=== PATIENT | female | born 1940 | race African-American/Black ===

== ENCOUNTER 2018-07-11 20:09 | Inpatient (IN) ==
[2018-07-12] MEDS ORDERED: Sod Chloride 0.9% Inj 1,000 ML IV.SIG ONE (00:31)
[2018-07-12 01:28] LABS: Baso % (Auto) 0.3 % (0.0-2.0); Hematocrit 44.9 % (35.0-46.0); Hemoglobin 15.4 gm/dL (11.6-15.3); Lymph # (Auto) 0.6 th/mm3 (1.0-4.8); Lymph % (Auto) 8.2 % (9.0-44.0); Mean Corpuscular HGB Conc 34.2 % (32.0-36.0); Mean Corpuscular Hemoglobin 29.9 pg (27.0-34.0); Mean Corpuscular Volume 87.4 fL (80.0-100.0); Mean Platelet Volume 7.8 fL (7.0-11.0); Mono # (Auto) 0.5 th/mm3 (0.0-0.9); Mono % (Auto) 6.8 % (0.0-8.0); Neut # (Auto) 6.1 th/mm3 (1.8-7.7); Neut % (Auto) 84.7 % (16.0-70.0); Platelet Count 342 th/mm3 (150-450); Red Blood Count 5.14 mil/mm3 (4.00-5.30); Red Cell Distribution Width 13.8 % (11.6-17.2); White Blood Count 7.2 th/mm3 (4.0-11.0)
[2018-07-12 01:47] LABS: Alkaline Phosphatase 81 U/L (45-117); Blood Urea Nitrogen 14 mg/dL (7-18); Total Protein 8.6 g/dL (6.4-8.2)
[2018-07-12 01:52] LABS: Alanine Aminotransferase 26 U/L (10-53); Anion Gap 8 meq/L (5-15); Aspartate Aminotransferase 24 U/L (15-37); Calcium 9.8 mg/dL (8.5-10.1); Carbon Dioxide 31.3 meq/L (21.0-32.0); Chloride 101 meq/L (98-107); Glomerular Filtration Rate 67 mL/min (>89); Glucose,Random 115 mg/dL (74-106); Potassium 3.6 meq/L (3.5-5.1); Sodium 140 meq/L (136-145)
[2018-07-12] MEDS ORDERED: Metoprolol Inj 5 MG/5 ML Vial IV.PUSH ONE (01:52)
[2018-07-12] MEDS ORDERED: Metoprolol Tartrate 25 MG Tablet PO ONE (01:53)
[2018-07-12] MEDS ORDERED: dilTIAZem Inj 125 MG in Sodium Chlor 0.9% Inj 100 ML IV.CONT PRN (02:28)
[2018-07-12] MEDS ORDERED: Acetaminophen 325 MG Tablet PO PRN (02:38)
[2018-07-12] MEDS ORDERED: Bisacodyl 10 MG Supp RECTAL PRN (02:38)
[2018-07-12] MEDS ORDERED: Morphine Inj 4 MG/ML Vial IV.PUSH PRN (02:39)
[2018-07-12] MEDS: Sod Chloride 0.9% Inj 1,000 ML IV.CONT SCH ×2 (02:48→14:05)
[2018-07-12 03:05] LABS: Troponin I 0.04 ng/mL (0.02-0.05)
[2018-07-12] MEDS ORDERED: Sod Chloride 0.9% Inj 1,000 ML IV.SIG SCH (03:30)
--- NOTE | 2018-07-12 03:52 | P.HPIM ---
History of Present Illness Primary Care Physician: UNKNOWN History of Present Illness: This is a 77-year-old female with a PMH of HTN who presented to the ER with complaints of nausea and vomiting. Pt states she is here visiting w/ sister, had been at a seminar all day and had not eaten anything except for a sausage sandwich, later developed multiple episodes of nausea/vomiting in addition to epigastric pain. No fever, chills or diarrhea. While in ER, pt noted to have episode of tachycardia w/ HR 160's, s/p Cardizem w/ some improvement, noted to be likely A-flutter, currently on Cardizem gtt. Pt reports previous h/o "high hear rate" in 2006, but was told "my heart was fine". BP 186/98, HR currently 80s. CBC unremarkable except for hemoglobin 15.4. GFR 67. Troponin 0.04. - Diagnosis (1) Dysrhythmia (2) Intractable nausea and vomiting (3) Dehydration Inpatient Certification: I certify that the inpatient services were ordered in accordance with Medicare regulations governing the order. This includes certification that hospital inpatient services are reasonable and necessary and in the case of services not specified as inpatient-only under 42 CFR 419.22(n), that they are appropriately provided as inpatient services in accordance to with the 2-midnight benchmark under 43 CFR 412.3(e) Estimated Total Length of Stay (Days): 2 Plans for Post Hospital Care: Not yet determined Review of Systems PAST FAMILY HISTORY: Reviewed. No h/o DM or CAD All other systems reviewed negative except as stated in HPI [facility] - History History Provided By: Patient - Medical History Medical History: Medical History (Last Updated 07/12/18 @ 03:23 by Miryam Mata) Constipation Hypertension - Tobacco History Second Hand Smoke Exposure: No Tobacco Use In Past 30 Days: No Smoking Status: Never smoker - Alcohol History How Often Do You Have a Drink Containing Alcohol: Never - Substance Use History Substance History: No History of Abuse - Immunization History Tetanus Immunization: >5 Years Medications and Allergies Active Medications: Active Medications Acetaminophen (Tylenol) 650 mg PO Q4H PRN PRN Reason: Temp > 100.4 Al Hydroxide/Mg Hydroxide (Milk Of Magnesia Liq) 30 ml PO Q12H PRN PRN Reason: Mild Constipation Bisacodyl (Dulcolax Supp) 10 mg RECTAL DAILY PRN PRN Reason: SEVERE CONSITIPATION Diltiazem HCl 125 mg/ Sodium (Chloride) 125 mls @ 5 mls/hr IV.CONT TITRATE PRN ; Protocol PRN Reason: Per Protocol Last Admin: 07/12/18 03:00 Dose: 5 mg/hr, 5 mls/hr Sodium Chloride (Ns Inj) 1,000 mls @ 100 mls/hr IV.CONT .Q10H DANNIELLE Last Admin: 07/12/18 02:48 Dose: 100 mls/hr Sodium Chloride (Ns Inj) 1,000 mls @ 1,000 mls/hr IV.SIG BOLUS [facility] Stop: 07/12/18 04:29 Lactulose (Lactulose Liq) 30 ml PO DAILY PRN PRN Reason: SEVERE CONSITIPATION Morphine Sulfate (Morphine Inj) 2 mg IV.PUSH Q4H PRN PRN Reason: PAIN 6-10 Ondansetron HCl (Zofran Inj) 4 mg IV.PUSH Q6H PRN PRN Reason: NAUSEA OR VOMITING Prochlorperazine Edisylate (Compazine Inj) 10 mg IV.PUSH Q6H PRN PRN Reason: NAUSEA/VOMITING Senna/Docusate Sodium ([place] Maria-Colace) 1 tab PO BID DANNIELLE Sennosides (Senokot) 17.2 mg PO Q12H PRN PRN Reason: Moderate Constipation Sodium Chloride (Ns Flush) 2 ml IV.FLUSH PRN PRN PRN Reason: FLUSH AFTER USING IV ACCESS Allergies Allergy/AdvReac Type Severity Reaction Status Date / Time latex Allergy Hives Verified 07/11/18 21:22 Home Medications Medication Instructions Recorded Confirmed Type magnesium hydroxide [Milk of 400 mg PO DAILY 07/12/18 07/12/18 History Magnesia] metoprolol tartrate 25 mg PO BID 07/12/18 07/12/18 History Exam Vital signs: Vital Signs 07/11/18 21:19 07/12/18 01:05 07/12/18 01:50 Temperature 98.3 F Pulse Rate 123 H 113 H 161 H Respiratory Rate 18 18 18 Blood Pressure 186/98 H 150/97 H 150/97 H Pulse Oximetry 96 100 07/12/18 01:59 07/12/18 03:22 Temperature Pulse Rate 98 H 81 Respiratory Rate 18 18 Blood Pressure 141/63 H 115/56 L Pulse Oximetry 100 Intake & Output 07/11/18 07/11/18 07/12/18 06:59 18:59 06:59 Weight 70.307 kg Narrative: PE: GENERAL: Very pleasant elderly white female in no acute distress. Sister at bedside SKIN: Focused skin assessment warm and dry. HEENT: PERRLA, EOMI. No scleral icterus or conjunctival pallor. No lid lag or facial droop. CARDIOVASCULAR: Regular rate and rhythm, NSR w/ HR 80's. No obvious murmurs to auscultation. No chest tenderness to palpation. RESPIRATORY: No obvious rhonchi or wheezing. Clear to auscultation. Breath sounds equal bilaterally. GASTROINTESTINAL: Abdomen soft, non-tender, nondistended. BS normal. MUSCULOSKELETAL: Extremities without clubbing, cyanosis, or edema. No obvious deformities. NEUROLOGICAL: Awake, alert and oriented x4. No focal neurologic deficits. Moving both upper and lower extremities spontaneously. PSYCHIATRIC: Appropriate mood and affect. Insight and judgment normal. Results - Labs CBC & Chem 7: 07/12/18 00:50 07/12/18 00:50 Labs: Short CBC 07/12/18 Range/Units 00:50 WBC 7.2 (4.0-11.0) th/mm3 Hgb 15.4 H (11.6-15.3) gm/dL Hct 44.9 (35.0-46.0) % Plt Count 342 (150-450) th/mm3 BMP 07/12/18 00:50 Sodium 140 Potassium 3.6 Chloride 101 Carbon Dioxide 31.3 BUN 14 Creatinine 0.98 Calcium 9.8 Cardiac Enzymes 07/12/18 07/12/18 Range/Units 00:50 00:50 Troponin I 0.04 Cancelled (0.02-0.05) ng/mL Liver Function 07/12/18 Range/Units 00:50 Total Bilirubin 0.8 (0.2-1.0) mg/dL AST 24 (15-37) U/L ALT 26 (10-53) U/L Alkaline Phosphatase 81 (45-117) U/L Albumin 4.0 (3.4-5.0) g/dL Caprini VTE Risk Assessment Caprini VTE Risk Assessment: No/Low Risk (score <= 1) Caprini Risk Assessment Model: Point Value = 1 Point Value = 2 Point Value = 3 Point Value = 5 Age 41-60 Minor surgery BMI > 25 kg/m2 Swollen legs Varicose veins or History of unexplained or recurrent spontaneous Oral contraceptives or hormone replacement Sepsis (< 1 month) Serious lung disease, including pneumonia (< 1 month) Abnormal pulmonary function Acute myocardial infarction Congestive heart failure (< 1 month) History of inflammatory bowel disease Medical patient at bed rest Age 61-74 Arthroscopic surgery Major open surgery (> 45 min) Laparoscopic surgery (> 45 min) Malignancy Confined to bed (> 72 hours) Immobilizing plaster cast Central venous access Age >= 75 History of VTE Family history of VTE Factor V Leiden Prothrombin [id number] Lupus anticoagulant Anticardiolipin antibodies Elevated serum homocysteine Heparin-induced thrombocytopenia Other congenital or acquired thrombophilia Stroke (< 1 month) Elective arthroplasty Hip, pelvis, or leg fracture Acute spinal cord injury (< 1 month) Prophylaxis Regimen: Total Risk Factor Score Risk Level Prophylaxis Regimen 0-1 Low Early ambulation 2 Moderate Order ONE of the following: *Sequential Compression Device (SCD) *Heparin 5000 units SQ BID 3-4 Higher Order ONE of the following medications: *Heparin 5000 units SQ TID *Enoxaparin/Lovenox 40 mg SQ daily (WT < 150 kg, CrCl > 30 mL/min) *Enoxaparin/Lovenox 30 mg SQ daily (WT < 150 kg, CrCl > 10-29 mL/min) *Enoxaparin/Lovenox 30 mg SQ BID (WT < 150 kg, CrCl > 30 mL/min) AND/OR *Sequential Compression Device (SCD) 5 or more Highest Order ONE of the following medications: *Heparin 5000 units SQ TID (Preferred with Epidurals) *Enoxaparin/Lovenox 40 mg SQ daily (WT < 150 kg, CrCl > 30 mL/min) *Enoxaparin/Lovenox 30 mg SQ daily (WT < 150 kg, CrCl > 10-29 mL/min) *Enoxaparin/Lovenox 30 mg SQ BID (WT < 150 kg, CrCl > 30 mL/min) AND *Sequential Compression Device (SCD) Assessment and Plan - Assessment (1) Dysrhythmia Code(s): I49.9 - Cardiac arrhythmia, unspecified Status: Acute (2) Intractable nausea and vomiting Code(s): R11.2 - Nausea with vomiting, unspecified Status: Acute (3) Dehydration Code(s): E86.0 - Dehydration Status: Acute - Plan A/P: 1. Dysrhythmia: episode of tachycardia w/ HR 160's, s/p Cardizem w/ improvement, noted to be possible A-flutter, however unable to capture on repeat EKG, currently on Cardizem gtt w/ HR 80's. Admit to [facility], telemetry, initial trop 0.04, no c/o chest pain, check serial cardiac enzymes for trend. Check Echo to eval for valvular abnormality/cardiomyopathy. Consult Cardiology for further eval. Check CXR 2. Intractable NV: w/ c/o epigastric pain, now improved, continue Zofran/ Compazine as needed. 3. Dehydration: GFR 67, Hemoconcentration w/ Hgb 15.4, IVF for hydration, repeat labs in am. 4. DVT Prophylaxis: SCD/Teds 5. Social work for d/c planning as needed 6. Case discussed w/ ER physician at length, labs/records/imaging reviewed by me
[2018-07-12] MEDS ORDERED: Sodium Chloride 0.9% 2 ML Flush PRN IV.FLUSH (04:10)
--- NOTE | 2018-07-12 04:26 | ED ---
HPI General Chief complaint: Nausea/Vomiting/Diarrhea Stated complaint: vomitting Time Seen by Provider: 07/11/18 23:25 Source: patient Mode of arrival: ambulatory Limitations: no limitations History of Present Illness HPI Narrative: 77-year-old female came to the emergency room with history of nausea and vomiting that started at 8 AM yesterday. Patient says that she ate some fish last night and thinks that it caused her food poisoning. No history of diarrhea. Patient did have however 2 bowel movements that were normal. Patient is extremely anxious and was tachycardic upon arrival. She denies of any abdominal pain, headache or chest pain. Vomitus was nonbilious in color as per the patient. Upon asking further patient said she had less than 10 episodes of the vomiting. complaint: Reports nausea and vomiting Onset (ago): hour(s) Description of Vomiting: watery Description of Diarrhea: none Associated Abdominal Pain: No Related Data Home Medications Medication Instructions Recorded Confirmed magnesium hydroxide [Milk of 400 mg PO DAILY 07/12/18 07/12/18 Magnesia] Previous Rx's Medication Instructions Recorded apixaban [Eliquis] 5 mg PO BID #60 tab 07/13/18 diltiazem HCl 60 mg PO QID #120 tab 07/13/18 Allergies Allergy/AdvReac Type Severity Reaction Status Date / Time latex Allergy Hives Verified 07/11/18 21:22 Review of Systems ROS: all other systems reviewed are negative PMFSH History History Provided By: Patient Medical History Medical History Constipation (Acute) Hypertension (Acute) Social History Social History Substance History: No History of Abuse Second Hand Smoke Exposure: No Smoking Status: Former smoker Tobacco Type: Cigarettes How Often Do You Have a Drink Containing Alcohol: Monthly or less Exam Narrative Exam Narrative: GENERAL: Awake, alert, extremely anxious, mild distress SKIN: Focused skin assessment warm/dry. HEAD: Atraumatic. Normocephalic. EYES: Pupils equal and round. No scleral icterus. No injection or drainage. ENT: No nasal bleeding or discharge. Mucous membranes pink and moist. NECK: Trachea midline. No JVD. CARDIOVASCULAR: Regular rate and rhythm. Tachycardia. No murmur appreciated. RESPIRATORY: No accessory muscle use. Clear to auscultation. Breath sounds equal bilaterally. GASTROINTESTINAL: Abdomen soft, non-tender, nondistended. Hepatic and splenic margins not palpable. MUSCULOSKELETAL: No obvious deformities. No clubbing. No cyanosis. No edema. NEUROLOGICAL: Awake and alert. No obvious cranial nerve deficits. Motor grossly within normal limits. Normal speech. PSYCHIATRIC: Appropriate mood and affect; insight and judgment normal. Course Initial Documented Vital Signs Temperature 98.3 F 07/11/18 21:19 Pulse Rate 123 H 07/11/18 21:19 Respiratory Rate 18 07/11/18 21:19 Blood Pressure 186/98 H 07/11/18 21:19 Pulse Oximetry 96 07/11/18 21:19 Last Documented Vital Signs Temperature 98.2 F 07/13/18 12:00 Pulse Rate 91 H 07/13/18 15:00 Respiratory Rate 18 07/13/18 12:00 Blood Pressure 134/71 07/13/18 12:00 Pulse Oximetry 97 07/13/18 12:00 Medical Decision Making MDM Narrative Medical decision making narrative: 3 AM blood test results came back and were within acceptable limits. Patient's heart rate went up to 150s-160s. Based on the narrow complex rhythm that was noticed on the EKG patient was given 5 mg of IV Lopressor and 25 mg of p.o. Lopressor. This slowed the heart rate down for brief 5-10 minutes after which the rapid heart rate resumed. Repeat EKG was done which showed narrow complex tachycardia. My concern was paroxysmal atrial flutter with 2-1 block. Patient was started on Cardizem drip after she received a bolus. Her heart rate slowly came down to 1 teens. Patient was admitted to the hospitalist. Aggregate critical care time was 30 minutes. Time to perform other separately billable procedures was not included in the critical care time. My time did not include minutes spent treating any other patients simultaneously or on activities that did not directly contribute to the patient's treatment. The services I provided to this patient were to treat and/or prevent clinically significant deterioration that could result in: Paroxysmal atrial flutter with 2-1 block, Cardizem bolus and drip I provided critical care services requiring my management, as noted below: Chart data review, documentation time, medication orders and management, vital sign assessments/reviewing monitor data, ordering and reviewing lab tests, ordering and interpreting/reviewing x-rays and diagnostic studies, care of the patient and discussion of the patient with the admitting physicians. Medical Screen Exam Complete: Yes Emergency Medical Condition: Yes Lab Data Result diagrams: 07/13/18 11:35 07/13/18 11:35 Lab Results 07/12/18 07/12/18 07/12/18 Range/Units 00:50 00:50 00:50 WBC 7.2 (4.0-11.0) th/mm3 RBC 5.14 (4.00-5.30) mil/mm3 Hgb 15.4 H (11.6-15.3) gm/dL Hct 44.9 (35.0-46.0) % MCV 87.4 (80.0-100.0) fL MCH 29.9 (27.0-34.0) pg MCHC 34.2 (32.0-36.0) % RDW 13.8 (11.6-17.2) % Plt Count 342 (150-450) th/mm3 MPV 7.8 (7.0-11.0) fL Neut % (Auto) 84.7 H (16.0-70.0) % Lymph % (Auto) 8.2 L (9.0-44.0) % [place] % (Auto) 6.8 (0.0-8.0) % Eos % (Auto) 0.0 (0.0-4.0) % Baso % (Auto) 0.3 (0.0-2.0) % Neut # (Auto) 6.1 (1.8-7.7) th/mm3 Lymph # (Auto) 0.6 L (1.0-4.8) th/mm3 [place] # (Auto) 0.5 (0.0-0.9) th/mm3 Eos # (Auto) 0.0 (0.0-0.4) th/mm3 Baso # (Auto) 0.0 (0.0-0.2) th/mm3 WBC Differential . Differential Comment Auto diff final PT (9.8-11.6) sec INR Ratio Sodium 140 (136-145) meq/L Potassium 3.6 (3.5-5.1) meq/L Chloride 101 (98-107) meq/L Carbon Dioxide 31.3 (21.0-32.0) meq/L Anion Gap 8 (5-15) meq/L BUN 14 (7-18) mg/dL Creatinine 0.98 (0.50-1.00) mg/dL Estimated GFR 67 L (>89) mL/min Random Glucose 115 H (74-106) mg/dL Calcium 9.8 (8.5-10.1) mg/dL Magnesium 2.0 (1.5-2.5) mg/dL Total Bilirubin 0.8 (0.2-1.0) mg/dL AST 24 (15-37) U/L ALT 26 (10-53) U/L Alkaline Phosphatase 81 (45-117) U/L Troponin I 0.04 Cancelled (0.02-0.05) ng/mL Total Protein 8.6 H (6.4-8.2) g/dL Albumin 4.0 (3.4-5.0) g/dL 07/12/18 07/12/18 07/13/18 Range/Units 11:14 19:54 11:25 WBC (4.0-11.0) th/mm3 RBC (4.00-5.30) mil/mm3 Hgb (11.6-15.3) gm/dL Hct (35.0-46.0) % MCV (80.0-100.0) fL MCH (27.0-34.0) pg MCHC (32.0-36.0) % RDW (11.6-17.2) % Plt Count (150-450) th/mm3 MPV (7.0-11.0) fL Neut % (Auto) (16.0-70.0) % Lymph % (Auto) (9.0-44.0) % [place] % (Auto) (0.0-8.0) % Eos % (Auto) (0.0-4.0) % Baso % (Auto) (0.0-2.0) % Neut # (Auto) (1.8-7.7) th/mm3 Lymph # (Auto) (1.0-4.8) th/mm3 [place] # (Auto) (0.0-0.9) th/mm3 Eos # (Auto) (0.0-0.4) th/mm3 Baso # (Auto) (0.0-0.2) th/mm3 WBC Differential Differential Comment PT 11.4 (9.8-11.6) sec INR 1.1 Ratio Sodium (136-145) meq/L Potassium (3.5-5.1) meq/L Chloride (98-107) meq/L Carbon Dioxide (21.0-32.0) meq/L Anion Gap (5-15) meq/L BUN (7-18) mg/dL Creatinine (0.50-1.00) mg/dL Estimated GFR (>89) mL/min Random Glucose (74-106) mg/dL Calcium (8.5-10.1) mg/dL Magnesium (1.5-2.5) mg/dL Total Bilirubin (0.2-1.0) mg/dL AST (15-37) U/L ALT (10-53) U/L Alkaline Phosphatase (45-117) U/L Troponin I 0.05 0.03 (0.02-0.05) ng/mL Total Protein (6.4-8.2) g/dL Albumin (3.4-5.0) g/dL 07/13/18 07/13/18 Range/Units 11:35 11:35 WBC 5.3 (4.0-11.0) th/mm3 RBC 3.92 L (4.00-5.30) mil/mm3 Hgb 12.1 D (11.6-15.3) gm/dL Hct 35.0 (35.0-46.0) % MCV 89.2 (80.0-100.0) fL MCH 30.8 (27.0-34.0) pg MCHC 34.6 (32.0-36.0) % RDW 14.0 (11.6-17.2) % Plt Count 239 D (150-450) th/mm3 MPV 7.8 (7.0-11.0) fL Neut % (Auto) 67.5 (16.0-70.0) % Lymph % (Auto) 22.7 (9.0-44.0) % [place] % (Auto) 8.3 H (0.0-8.0) % Eos % (Auto) 0.8 (0.0-4.0) % Baso % (Auto) 0.7 (0.0-2.0) % Neut # (Auto) 3.6 (1.8-7.7) th/mm3 Lymph # (Auto) 1.2 (1.0-4.8) th/mm3 [place] # (Auto) 0.4 (0.0-0.9) th/mm3 Eos # (Auto) 0.0 (0.0-0.4) th/mm3 Baso # (Auto) 0.0 (0.0-0.2) th/mm3 WBC Differential . Differential Comment Auto diff final PT (9.8-11.6) sec INR Ratio Sodium 143 (136-145) meq/L Potassium 3.2 L (3.5-5.1) meq/L Chloride 109 H D (98-107) meq/L Carbon Dioxide 26.5 (21.0-32.0) meq/L Anion Gap 8 (5-15) meq/L BUN 7 (7-18) mg/dL Creatinine 0.62 (0.50-1.00) mg/dL Estimated GFR Greater than 89 (>89) mL/min Random Glucose 86 (74-106) mg/dL Calcium 7.9 L D (8.5-10.1) mg/dL Magnesium (1.5-2.5) mg/dL Total Bilirubin 0.6 (0.2-1.0) mg/dL AST 17 (15-37) U/L ALT 20 (10-53) U/L Alkaline Phosphatase 56 (45-117) U/L Troponin I (0.02-0.05) ng/mL Total Protein 6.5 D (6.4-8.2) g/dL Albumin 2.9 L D (3.4-5.0) g/dL Imaging Data Radiologist's impression: Chest X-Ray 07/12/18 00:00 CONCLUSION: No acute disease ECG Data Attestation: I personally reviewed and interpreted this ECG as follows: Interpretation: Twelve-lead EKG was reviewed by me. Normal sinus rhythm, normal axis, sinus tachycardia. Heart rate of 126 bpm. Discharge Plan Discharge Disposition Patient Disposition: Discharge Home Discharge Condition Condition: Good Discharge Order Discharge Orders: Discharge Order (Routine); Ordered 07/13/18 Ordered By: Dileep Jarvis Physicians Team ED Provider: Cookie Schaefer Primary Care Provider: UNKNOWN, Attending Provider: Dileep Jarvis Other Providers: Damon Yun Status ED Status: Left Department Discharge Information Discharge Date/Time: 07/12/18 04:42
--- NOTE | 2018-07-12 05:00 | XR ---
EXAM DATE: 07/12/2018 4:31 AM EDT AGE/SEX: 77 years / Female INDICATIONS: Shortness of breath. CLINICAL DATA: This is the patient's initial encounter. Patient reports that signs and symptoms have been present for 1 day and indicates a pain score of 0/10. MEDICAL/SURGICAL HISTORY: . A-Fib. None. COMPARISON: No prior exams available for comparison. FINDINGS: A single AP view of the chest demonstrates the lungs to be symmetrically aerated without evidence of mass, infiltrate or effusion. The cardiomediastinal contours are unremarkable. 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 CONCLUSION: No acute disease Electronically signed by: Kevin Hawkins MD 07/12/2018 4:58 AM EDT
[2018-07-12] MEDS: Pantoprazole Inj 40 MG Vial IV.PUSH SCH ×2 (10:36→21:02)
[2018-07-12] MEDS: Sodium Chloride 0.9% 2 ML Flush BID IV.FLUSH SCH ×2 (10:36→21:02)
[2018-07-12] MEDS: Senna/Docusate Sodium 8.6/50 MG Tablet PO SCH ×2 (10:36→21:03)
--- NOTE | 2018-07-12 11:54 | MB ---
cc: Don Mcneal MD DATE: 07/12/2018 REASON FOR CONSULTATION: New onset atrial fibrillation/flutter. HISTORY OF PRESENT ILLNESS: The patient is a very pleasant 77-year-old woman who denies any cardiac history, though she does say that about 10 years ago after chemo and radiation, she did have an admission for a rapid heart rate, but is unclear of any further details. The patient is visiting from out of town when she began having nausea and vomiting, presented to the emergency department in a rapid atrial fibrillation/flutter. She was started on Cardizem drip and is now feeling much better. She has no current or recent chest pain, shortness of breath, lightheadedness, dizziness. PAST MEDICAL HISTORY: Hypertension. CURRENT MEDICATIONS: 1. Cardizem drip. 2. Metoprolol. ALLERGIES: LATEX. PHYSICAL EXAMINATION: VITAL SIGNS: Temperature 99.1, pulse 90, respiratory rate 18, BP 125/60, saturating 99 on room air. GENERAL: Pleasant, woman in no distress. NECK: No JVD. LUNGS: Clear to auscultation bilaterally. CARDIOVASCULAR: Regular rate and rhythm. No murmurs appreciated. ABDOMEN: Benign. EXTREMITIES: No edema. LABORATORY DATA: White count 7.2, hematocrit 44.9, platelets 342. Sodium 140, potassium 3.6, chloride 101, bicarbonate 31.3, BUN 14, creatinine 0.98, glucose 115. EKG shows rapid atrial flutter at 165. Current telemetry shows a more rate controlled atrial fibrillation/flutter generally in the low 100s. Troponin is negative x1. ASSESSMENT AND PLAN: 1. New onset fibrillation/flutter. The patient with risk factors including hypertension, age and gender will need anticoagulation and she opts for Eliquis which I started at 5 mg b.i.d. I have started her on oral Cardizem with an attempt to wean down her drip. She will get an echocardiogram. Hopefully, she can be discharged home in the next day or two. Thank you for the opportunity to participate in the patient's care. Don Mcneal MD [facility]/ct , 10:10 AM , 10:18 AM
[2018-07-12] MEDS: dilTIAZem 60 MG Tablet PO SCH ×3 (12:31→21:01)
--- NOTE | 2018-07-12 18:06 | P.PNIM ---
Subjective Interval history: Patient is currently in no acute distress. She is anxious about starting anticoagulation. She does not have any complaints of chest pain or palpitations. Physical Exam Vital signs: Vital Signs 07/11/18 21:19 07/12/18 01:05 07/12/18 01:50 Temperature 98.3 F Pulse Rate 123 H 113 H 161 H Respiratory Rate 18 18 18 Blood Pressure 186/98 H 150/97 H 150/97 H Pulse Oximetry 96 100 07/12/18 01:59 07/12/18 03:22 07/12/18 04:00 Temperature 99.1 F Pulse Rate 98 H 81 85 Respiratory Rate 18 18 18 Blood Pressure 141/63 H 115/56 L 125/62 Pulse Oximetry 100 99 07/12/18 05:00 07/12/18 06:00 07/12/18 07:00 Temperature Pulse Rate 91 H 90 90 Respiratory Rate Blood Pressure Pulse Oximetry 07/12/18 08:00 07/12/18 09:00 07/12/18 10:00 Temperature 98.0 F Pulse Rate 101 H 100 H 90 Respiratory Rate 16 Blood Pressure 115/63 Pulse Oximetry 99 07/12/18 11:00 07/12/18 12:00 07/12/18 13:00 Temperature 98.2 F Pulse Rate 91 H 93 H 98 H Respiratory Rate 16 Blood Pressure 109/72 Pulse Oximetry 07/12/18 14:00 07/12/18 15:00 07/12/18 16:00 Temperature 98.3 F Pulse Rate 96 H 92 H 96 H Respiratory Rate 16 Blood Pressure 103/62 Pulse Oximetry 98 Intake & Output 07/11/18 07/12/18 07/12/18 18:59 06:59 18:59 Intake Total 1000 / 1000 1000 / 1000 Balance 1000 / 1000 1000 / 1000 Weight 74 kg Intake: IV 1000 / 1000 1000 / 1000 NS Inj 1,000 ML @ 100 mls/hr IV 1000 / 1000 .CONT .Q10H DANNIELLE Rx#:[id number] Cardizem Inj 125 MG In NS Inj 0 / 0 100 ML @ 5 MG/HR 5 mls/hr IV. CONT TITRATE PRN Rx#:[id number] NS Inj 1,000 ML @ Wide Open IV. 1000 / 1000 SIG BOLUS ONE Rx#:[id number] Other: # Voids 1 Date of Last Bowel Movement 07/11/18 Narrative: General patient in no acute distress HEENT extraocular movements are intact, clear oropharyngeal mucosa, no JVD Cardiovascular S1-S2 audible, irregularly irregular rhythm. Respiratory clear to auscultation bilaterally Abdomen soft, nontender, nondistended, normal bowel sounds Extremities no edema 2+ distal pulses in bilateral upper and lower extremities Neuro cranial nerves II through XII intact Results - Labs CBC & Chem 7: 07/12/18 00:50 07/12/18 00:50 Laboratory Results - last 24 hr 07/12/18 07/12/18 07/12/18 00:50 00:50 00:50 WBC 7.2 RBC 5.14 Hgb 15.4 H Hct 44.9 MCV 87.4 MCH 29.9 MCHC 34.2 RDW 13.8 Plt Count 342 MPV 7.8 Neut % (Auto) 84.7 H Lymph % (Auto) 8.2 L [place] % (Auto) 6.8 Eos % (Auto) 0.0 Baso % (Auto) 0.3 Neut # (Auto) 6.1 Lymph # (Auto) 0.6 L [place] # (Auto) 0.5 Eos # (Auto) 0.0 Baso # (Auto) 0.0 WBC Differential . Differential Comment Auto diff final Sodium 140 Potassium 3.6 Chloride 101 Carbon Dioxide 31.3 Anion Gap 8 BUN 14 Creatinine 0.98 Estimated GFR 67 L Random Glucose 115 H Calcium 9.8 Magnesium 2.0 Total Bilirubin 0.8 AST 24 ALT 26 Alkaline Phosphatase 81 Troponin I 0.04 Cancelled Total Protein 8.6 H Albumin 4.0 07/12/18 11:14 WBC RBC Hgb Hct MCV MCH MCHC RDW Plt Count MPV Neut % (Auto) Lymph % (Auto) [place] % (Auto) Eos % (Auto) Baso % (Auto) Neut # (Auto) Lymph # (Auto) [place] # (Auto) Eos # (Auto) Baso # (Auto) WBC Differential Differential Comment Sodium Potassium Chloride Carbon Dioxide Anion Gap BUN Creatinine Estimated GFR Random Glucose Calcium Magnesium Total Bilirubin AST ALT Alkaline Phosphatase Troponin I 0.05 Total Protein Albumin - Imaging Impressions Chest X-Ray 07/12/18 00:00 CONCLUSION: No acute disease Assessment and Plan - Assessment (1) Dysrhythmia Code(s): I49.9 - Cardiac arrhythmia, unspecified Status: Acute (2) Intractable nausea and vomiting Code(s): R11.2 - Nausea with vomiting, unspecified Status: Acute (3) Dehydration Code(s): E86.0 - Dehydration Status: Acute - Plan This patient is a 77-year-old female with a diagnosis of hypertension who came into our emergency room with complaints of nausea vomiting. In the emergency department she was found to be in atrial fibrillation with rapid ventricular rate with a heart rate up to 160s. 1. Atrial fibrillation with RVR The patient was evaluated in the ED and she was found to have A. fib with RVR. Troponins were negative The patient was started on a Cardizem drip and cardiology was consulted. The patient has an elevated chads score given her age, and hypertension. The risks and benefits of being on anticoagulation were discussed with the patient. She agrees to starting anticoagulation. Eliquis was started by the cardiology team. She has now been transitioned to p.o. Cardizem. She did have an episode of RVR early this morning where her heart rate went into the 150s. Currently heart rate is around 90. We will continue to monitor her on telemetry. She will likely be discharged tomorrow on p.o. Cardizem and Eliquis. 2. Hypertension Blood pressure currently under control. Continue p.o. Cardizem. DVT prophylaxis. Patient is currently on Eliquis.
[2018-07-13] MEDS: Sod Chloride 0.9% Inj 1,000 ML IV.CONT SCH (00:39)
[2018-07-13] MEDS: Pantoprazole Inj 40 MG Vial IV.PUSH SCH (08:26)
[2018-07-13] MEDS: dilTIAZem 60 MG Tablet PO SCH (08:26)
[2018-07-13] MEDS: Senna/Docusate Sodium 8.6/50 MG Tablet PO SCH (08:26)
[2018-07-13] MEDS: Sodium Chloride 0.9% 2 ML Flush BID IV.FLUSH SCH (08:27)
--- NOTE | 2018-07-13 09:05 | P.DS ---
Date of admission: 07/12/18 02:39 Primary care physician: UNKNOWN Brief History from admission: This is a 77-year-old female with a PMH of HTN who presented to the ER with complaints of nausea and vomiting. Patient was found to be in atrial fibrillation with rapid ventricular rate. DS: Diagnosis - Discharge Diagnosis (1) Dysrhythmia Status: Acute (2) Intractable nausea and vomiting Status: Acute (3) Dehydration Status: Acute DS: Medications - Discharge Medications Prescriptions: apixaban [Eliquis] 5 mg PO BID #60 tab diltiazem HCl 60 mg PO QID #120 tab DS: Summary Hospital Course: This patient is a 77-year-old female with a diagnosis of hypertension who came into our emergency room with complaints of nausea vomiting. In the emergency department she was found to be in atrial fibrillation with rapid ventricular rate with a heart rate up to 160s. 1. Atrial for ablation with rapid ventricular rate 2. Hypertension The patient was brought into the emergency department with complaints of palpitations, nausea, vomiting. EKG and telemetry showed atrial for ablation with rapid ventricular rate of 160. Troponins were negative. Chest x-ray was negative The patient was started on a Cardizem drip and cardiology was consulted. Given the patient's elevated chads score anticoagulation was discussed with the patient. The risks and benefits of anticoagulation were discussed in detail with the patient. Agrees to start anticoagulation. Cardiology was following the patient throughout the hospitalization and transition her to p.o. Cardizem. Her rate is now under control. She has not experienced any bleeding while she has been in house. Labs are within normal limits. The patient's blood pressure and heart rate are now under control and she will be discharged home today. Patient was given scripts for Cardizem and Eliquis will be continued she was advised to follow-up with a primary care physician who is in [facility]. She was advised to seek medical attention if she begins to have any spontaneous bleeding or notices any black or bloody stools. - Time Spent with Patient Total time spent providing and/or coordinating discharge services: Greater than 30 minutes - Quality: VTE Deep Vein Thrombosis/Pulmonary Embolism Present on Admission: No Exam Vital signs: Vital Signs 07/12/18 11:00 07/12/18 12:00 07/12/18 13:00 Temperature 98.2 F Pulse Rate 91 H 93 H 98 H Respiratory Rate 16 Blood Pressure 109/72 Pulse Oximetry 07/12/18 14:00 07/12/18 15:00 07/12/18 16:00 Temperature 98.3 F Pulse Rate 96 H 92 H 96 H Respiratory Rate 16 Blood Pressure 103/62 Pulse Oximetry 98 07/12/18 17:00 07/12/18 18:00 07/12/18 19:00 Temperature Pulse Rate 94 H 92 H 92 H Respiratory Rate Blood Pressure Pulse Oximetry 07/12/18 20:00 07/12/18 21:00 07/12/18 22:00 Temperature 98.2 F Pulse Rate 92 H 88 88 Respiratory Rate 14 Blood Pressure 110/62 Pulse Oximetry 98 07/12/18 23:00 07/13/18 00:00 07/13/18 01:00 EDT Temperature 99.1 F Pulse Rate 85 88 85 Respiratory Rate 16 Blood Pressure 133/70 Pulse Oximetry 97 07/13/18 01:00 EST 07/13/18 02:00 07/13/18 03:00 Temperature Pulse Rate 86 85 82 Respiratory Rate Blood Pressure Pulse Oximetry 07/13/18 04:00 07/13/18 05:00 07/13/18 06:00 Temperature 98.8 F Pulse Rate 85 84 80 Respiratory Rate 18 Blood Pressure 102/57 L Pulse Oximetry 99 Intake & Output 07/12/18 07/13/18 07/13/18 19:59 06:59 18:59 Intake Total Balance Weight Intake: IV NS Inj 1,000 ML @ 100 mls/hr IV .CONT .Q10H DANNIELLE Rx#:[id number] Cardizem Inj 125 MG In NS Inj 100 ML @ 5 MG/HR 5 mls/hr IV. CONT TITRATE PRN Rx#:[id number] Oral Other: # Voids Date of Last Bowel Movement Narrative: General patient in no acute distress HEENT extraocular movements are intact, clear oropharyngeal mucosa, no JVD Cardiovascular S1-S2 audible, RRR Respiratory clear to auscultation bilaterally Abdomen soft, nontender, nondistended, normal bowel sounds Extremities no edema 2+ distal pulses in bilateral upper and lower extremities Neuro cranial nerves II through XII intact Results Procedures completed during hospitalization: None Labs on day of discharge: Labs from last 24 hours 07/12/18 07/12/18 19:54 11:14 Troponin I 0.03 0.05 - Impressions ITS Impressions Chest X-Ray 07/12/18 00:00 CONCLUSION: No acute disease Discharge Plan - Discharge Disposition Patient Disposition: 01 Discharge Home - Discharge Condition Condition: Good - Discharge Order Discharge Orders: Discharge Order (Routine); Ordered 07/13/18 Ordered By: Dileep Jarvis - Physicians Team Primary Care Provider: EDENILSON, Attending Provider: Dileep Jarvis Other Providers: Damon Yun DO
--- NOTE | 2018-07-13 09:47 | P.PN ---
Subjective Interval history: Pt feeling much better, in NSR, no sx. Physical Exam Vital signs: Vital Signs 07/12/18 11:00 07/12/18 12:00 07/12/18 13:00 Temperature 98.2 F Pulse Rate 91 H 93 H 98 H Respiratory Rate 16 Blood Pressure 109/72 Pulse Oximetry 07/12/18 14:00 07/12/18 15:00 07/12/18 16:00 Temperature 98.3 F Pulse Rate 96 H 92 H 96 H Respiratory Rate 16 Blood Pressure 103/62 Pulse Oximetry 98 07/12/18 17:00 07/12/18 18:00 07/12/18 19:00 Temperature Pulse Rate 94 H 92 H 92 H Respiratory Rate Blood Pressure Pulse Oximetry 07/12/18 20:00 07/12/18 21:00 07/12/18 22:00 Temperature 98.2 F Pulse Rate 92 H 88 88 Respiratory Rate 14 Blood Pressure 110/62 Pulse Oximetry 98 07/12/18 23:00 07/13/18 00:00 07/13/18 01:00 EDT Temperature 99.1 F Pulse Rate 85 88 85 Respiratory Rate 16 Blood Pressure 133/70 Pulse Oximetry 97 07/13/18 01:00 EST 07/13/18 02:00 07/13/18 03:00 Temperature Pulse Rate 86 85 82 Respiratory Rate Blood Pressure Pulse Oximetry 07/13/18 04:00 07/13/18 05:00 07/13/18 06:00 Temperature 98.8 F Pulse Rate 85 84 80 Respiratory Rate 18 Blood Pressure 102/57 L Pulse Oximetry 99 Intake & Output 07/12/18 07/13/18 07/13/18 19:59 06:59 18:59 Intake Total Balance Weight Intake: IV NS Inj 1,000 ML @ 100 mls/hr IV .CONT .Q10H DANNIELLE Rx#:[id number] Cardizem Inj 125 MG In NS Inj 100 ML @ 5 MG/HR 5 mls/hr IV. CONT TITRATE PRN Rx#:[id number] Oral Other: # Voids Date of Last Bowel Movement - Constitutional no acute distress - Routine HEENT Exam Head: Present: normocephalic Eye: Present: EOMI ENT: Present: mucous membranes moist - Routine Neck Exam Present: supple. Absent: JVD - Routine Respiratory Exam Present: CTA bilaterally. Absent: accessory muscle use - Routine Cardiovascular Exam Present: RRR - Routine Extremities Exam Absent: edema Results - Labs CBC & Chem 7: 07/12/18 00:50 07/12/18 00:50 Laboratory Results - last 24 hr 07/12/18 07/12/18 11:14 19:54 Troponin I 0.05 0.03 - Procedures None Assessment and Plan - Assessment (1) Atrial flutter Code(s): I48.92 - Unspecified atrial flutter Status: Acute - Plan appears SR by tele; on diltiazem, eliquis, feeling well; echo pending - Attending Attestation Ok to d/c home to f/u with me in the office, echo scheduled but can be done as outpt if pt otherwise ready to go home.
[2018-07-13] MEDS ORDERED: dilTIAZem CD 240 MG Capsule PO SCH (10:00)
[2018-07-13 12:32] LABS: Baso % (Auto) 0.7 % (0.0-2.0); Eos % (Auto) 0.8 % (0.0-4.0); Hemoglobin 12.1 gm/dL (11.6-15.3); Lymph # (Auto) 1.2 th/mm3 (1.0-4.8); Lymph % (Auto) 22.7 % (9.0-44.0); Mean Corpuscular HGB Conc 34.6 % (32.0-36.0); Mean Corpuscular Hemoglobin 30.8 pg (27.0-34.0); Mean Corpuscular Volume 89.2 fL (80.0-100.0); Mean Platelet Volume 7.8 fL (7.0-11.0); Mono # (Auto) 0.4 th/mm3 (0.0-0.9); Mono % (Auto) 8.3 % (0.0-8.0); Neut # (Auto) 3.6 th/mm3 (1.8-7.7); Neut % (Auto) 67.5 % (16.0-70.0); Platelet Count 239 th/mm3 (150-450); Red Blood Count 3.92 mil/mm3 (4.00-5.30); White Blood Count 5.3 th/mm3 (4.0-11.0)
[2018-07-13 12:39] LABS: INR 1.1 Ratio; Prothrombin Time 11.4 sec (9.8-11.6)
[2018-07-13 13:31] LABS: Alanine Aminotransferase 20 U/L (10-53); Albumin 2.9 g/dL (3.4-5.0); Alkaline Phosphatase 56 U/L (45-117); Anion Gap 8 meq/L (5-15); Aspartate Aminotransferase 17 U/L (15-37); Blood Urea Nitrogen 7 mg/dL (7-18); Calcium 7.9 mg/dL (8.5-10.1); Carbon Dioxide 26.5 meq/L (21.0-32.0); Chloride 109 meq/L (98-107); Glomerular Filtration Rate Greater Than 89 mL/min (>89); Glucose,Random 86 mg/dL (74-106); Potassium 3.2 meq/L (3.5-5.1); Sodium 143 meq/L (136-145); Total Protein 6.5 g/dL (6.4-8.2)
--- NOTE | 2018-07-13 14:56 | ECHRPT ---
Indication: AFIB FLUTTER CONCLUSIONS Normal left ventricular size. The left atrial size is mildly dilated. Wall thickness is normal. The left ventricular systolic function is normal with an estimated ejection fraction in the range of 60-65%. Mitral annular calcification is present. Aortic valve sclerosis is present. Mild thickening of the aortic valve leaflets. There is estimated mild pulmonary hypertension present (50 mmHg). BP: / HR: Rhythm: MEASUREMENTS (Male / Female) Normal Values Technical Quality: 2D ECHO LV Diastolic Diameter PLAX 4.0 cm 4.2 - 5.9 / 3.9 - 5.3 cm LV Systolic Diameter PLAX 2.9 cm IVS Diastolic Thickness 1.1 cm 0.6 - 1.0 / 0.6 - 0.9 cm LVPW Diastolic Thickness 0.7 cm 0.6 - 1.0 / 0.6 - 0.9 cm LV Relative Wall Thickness 0.4 RV Internal Dim ED PLAX 1.9 cm LA Systolic Diameter LX 4.6 cm 3.0 - 4.0 / 2.7 - 3.8 cm M-MODE Aortic Root Diameter MM 2.8 cm AV Cusp Separation MM 1.9 cm DOPPLER Mitral E Point Velocity 86.4 cm/s Mitral A Point Velocity 79.0 cm/s Mitral E to A Ratio 1.1 TR Peak Velocity 316.0 cm/s TR Peak Gradient 39.9 mmHg Right Atrial Pressure 10.0 mmHg Pulmonary Artery Systolic Pressu 49.9 mmHg Right Ventricular Systolic Press 49.9 mmHg FINDINGS LEFT VENTRICLE Normal left ventricular size. Wall thickness is normal. The left ventricular systolic function is normal with an estimated ejection fraction in the range of 60-65%. RIGHT VENTRICLE Normal right ventricular size and systolic function. LEFT ATRIUM The left atrial size is mildly dilated. RIGHT ATRIUM The right atrial size is normal. ATRIAL SEPTUM Normal atrial septal thickness without atrial level shunting by limited color doppler interrogation. AORTA The aortic root and proximal ascending aorta are normal in size on limited imaging. MITRAL VALVE Mitral annular calcification is present. AORTIC VALVE Aortic valve sclerosis is present. Mild thickening of the aortic valve leaflets. TRICUSPID VALVE There is estimated mild pulmonary hypertension present (50 mmHg). PULMONARY VALVE No pulmonary valve regurgitation or stenosis. VESSELS The inferior vena cava is normal in size. PERICARDIUM No pericardial effusion. Don Mcneal MD (Electronically Signed) Final Date:13 July 2018 14:55
--- NOTE | 2018-07-14 00:12 | ECG ---
Date Performed: 07/12/2018 Time Performed: 01:50:15 PTAGE: 77 years EKG: Supraventricular tachycardia ABNORMAL RHYTHM ECG PREVIOUS TRACING : 07/12/2018 01.41 Compared to previous tracing, rate has increased with SVT DOCTOR: Damon Yun Interpretating Date/Time 07/14/2018 00:11:22
--- NOTE | 2018-07-14 00:12 | ECG ---
Date Performed: 07/12/2018 Time Performed: 01:41:15 PTAGE: 77 years EKG: SINUS TACHYCARDIA POSSIBLE LEFT ATRIAL ENLARGEMENT ABNORMAL RHYTHM ECG PREVIOUS TRACING : 07/12/2018 00.24 Since the previous tracing, no significant change noted DOCTOR: Damon Yun Interpretating Date/Time 07/14/2018 00:11:53
--- NOTE | 2018-07-14 00:13 | ECG ---
Date Performed: 07/12/2018 Time Performed: 00:24:35 PTAGE: 77 years EKG: SINUS TACHYCARDIA ABNORMAL RHYTHM ECG NO PREVIOUS TRACING DOCTOR: Damon Yun Interpretating Date/Time 07/14/2018 00:12:21
== END 2018-07-13 17:35 | disposition home or self-care (01) ==
LOC: NEPC 20:09 → NEDA 07-12 02:39 → HCIS 07-12 04:04
PROVIDERS: ADMIT Hospitalist; ATTEND Hospitalist